=== PATIENT | female | born 1995 ===

== ENCOUNTER → 2017-10-16 | Outpatient (CLI) | payer OTHER | END | disposition home or self-care (01) | LOC: KCIC US 12:27 | DX: R22.1 Localized swelling, mass and lump, neck (principal) | CPT/HCPCS: 76536 ==

== ENCOUNTER → 2017-12-03 | Outpatient (CLI) | payer OTHER | END | disposition home or self-care (01) | LOC: KCIC 15:02 | DX: M41.84 Other forms of scoliosis, thoracic region (principal); M62.838 Other muscle spasm | CPT/HCPCS: 72072 ==